=== PATIENT | female | born 1975 | race Caucasian/White ===

== ENCOUNTER → 2019-08-21 | Outpatient (CLI) | payer BC ==
[~2019-08-21] MED LIST: ADVAIR HFA115 MCG/21 INH; ALDACTONE25 MG PO; MOBIC15 MG PO; PROAIR HFA8.5 GM INH; PROGESTERONE200 MG PO; SINGULAIR 10 MG10 M1 PO; TRAMADOL 50 MG50 MG PO; ZANAFLEX4 MG PO; [UNRECOGNIZED DRUG - OTHER] PO; [UNRECOGNIZED DRUG - OTHER] PO
== END ==
LOC: SJCVCIMAG 08-09 15:11 → CAT 15:13 → SJCVCIMAG 16:08
DX: Z13.6 Encounter for screening for cardiovascular disorders (principal); E78.00 Pure hypercholesterolemia, unspecified; I25.10 Atherosclerotic heart disease of native coronary artery without angina pectoris; I10 Essential (primary) hypertension